=== PATIENT | female | born 1975 | race Caucasian/White ===

== ENCOUNTER 2018-12-01 09:57 | Inpatient (IN) | payer MEDICARE, OTHER ==
[~2018-12-01 09:57] MED LIST: BUPIV. HCL 0.25% (2.5MG/ML)/EPI. (1:200,000) PF 10 ML VIAL IM ONE; DEXAMETHASONE SODIUM PHOSPHATE 10 MG/ML VIAL ONE; FAMOTIDINE 20 MG/2 ML VIAL IV ONE; LACTATED RINGERS 1,000 ML IV.SOLN IV ONE; LIDOCAINE HCL 1% PF 300MG/30ML VIAL ONE; LIDOCAINE HCL 2% PF 100MG/5ML VIAL IJ ONE; MIDAZOLAM HCL 2 MG/2 ML VIAL ONE; ONDANSETRON HCL/PF 4 MG/ 2ML VIAL ONE; PHENYLEPHRINE HCL 10 MG/1 ML ONE; PROPOFOL 200 MG/20 ML VIAL IV ONE; ROCURONIUM BROMIDE 10 MG/ML 5ML VIAL ONE; SCOPOLAMINE HYDROBROMIDE 1.5MG/72HR PATCH TD ONE; SODIUM CHLORIDE IRRIG SOLUTION 3,000 ML IRRIG.SOLN IR ONE; SUGAMMADEX SODIUM 500 MG/5 ML VIAL IV ONE; VASOPRESSIN 20 UNIT/1 ML ONE; ceFAZolin SODIUM 1 GM VIAL ONE; ePHEDrine SULFATE 50 MG/1 ML IVP ONE
[2018-12-01] MEDS ORDERED: 0.9 % SODIUM CHLORIDE 1,000 ML IV ONE (16:00)
[2018-12-01] MEDS ORDERED: ONDANSETRON HCL/PF 4 MG/ 2ML VIAL IVP PRN (16:48)
[2018-12-01] MEDS ORDERED: ACETAMINOPHEN 1,000 MG/100 ML INJ IV PRN (16:48)
[2018-12-01] MEDS ORDERED: MORPHINE SULFATE 2 MG/ML VIAL IV PRN (16:48)
[2018-12-01] MEDS ORDERED: PROMETHAZINE HCL 25 MG in 0.9 % SODIUM CHLORIDE 50 ML IV PRN (16:48)
[2018-12-01] MEDS ORDERED: INSULIN REGULAR, HUMAN 100 UNIT/ML 10ML VIAL ONE (17:14)
[2018-12-01] MEDS ORDERED: IPRATROPIUM/ALBUTEROL SULFATE 3 ML AMPUL.NEB NEB PRN (20:57)
[2018-12-01] MEDS ORDERED: INSULIN REGULAR, HUMAN 100 UNIT/ML 10ML VIAL IV ONE (21:00)
[2018-12-01] MEDS: 0.9 % SODIUM CHLORIDE 1,000 ML IV SCH (23:20)
[2018-12-01] MEDS: FAMOTIDINE 20 MG/2 ML VIAL IV SCH (23:22)
[2018-12-01] MEDS: ceFAZolin SODIUM 1 GM in 0.9 % SODIUM CHLORIDE 50 ML IV SCH (23:48)
[2018-12-02] MEDS: HYDROcodone-ACETAMIN 7.5-325/15ML SOLN UD CUP PO PRN ×5 (02:21→21:59)
[2018-12-02] MEDS: 0.9 % SODIUM CHLORIDE 1,000 ML IV SCH ×3 (03:29→22:08)
[2018-12-02] MEDS: ceFAZolin SODIUM 1 GM in 0.9 % SODIUM CHLORIDE 50 ML IV SCH (04:44)
[2018-12-02] MEDS ORDERED: CYCLOBENZAPRINE HCL 5 MG TABLET PO PRN (07:29)
[2018-12-02 07:36] LABS: eGFR (Non-African) > 60
[2018-12-02 07:37] LABS: BASOPHILS % 0.5 % (0.0-1.5); NEUTROPHILS # 13.2 # k/uL (1.4-7.7)
--- NOTE | 2018-12-02 07:46 | Inpatient Progress Note ---
Subjective - Required Recertification Statement I anticipate X number of days because-include discharge plan: 1 - Review of Systems Events since last encounter: Patient is lying in bed this morning awake. She states that she did not get much sleep. She was having a lot of discomfort last night. She states that pain is improving. She has had some nausea and moderate discomfort from the gas. She denies any chest pain or shortness of breath. She has been up ambulating in the halls and using incentive spirometer while awake. She is concerned about her blood pressure being slightly elevated and she is requesting her Flexeril and Lyrica for her back pain. General: Denies: Chills, Night Sweats HEENT: Denies: Dysphasia Pulmonary: Dyspnea (with exertion d/t weight) Cardiovascular: Denies: Chest Pain, Light Headedness Gastrointestinal: Nausea, Abdominal Pain. Denies: Vomiting Genitourinary: Denies: Dysuria Musculoskeletal: Back Pain (chronic back pain) Neurological: Weakness Objective - Exam Vitals and I&O: Vital Signs Temp 97.2 F L 12/02/18 05:47 Pulse 112 H 12/02/18 05:47 Resp 20 12/02/18 05:47 BP 152/80 12/02/18 05:47 Pulse Ox 96 12/02/18 05:47 Intake & Output 12/01/18 12/01/18 12/02/18 11:59 23:59 11:59 Output Total 800 2100 Balance -800 -2100 Output: Urine 800 2100 Other: # Voids 4 General: Alert, Oriented to Person, Oriented to Place, Oriented to Time, Cooperative, Moderate distress, Morbidly Obese HEENT: Atraumatic, PERRLA, Mouth Mucous membr. moist/[place], Nose Mucous membr. moist/[place] Neck: No JVD, +2 carotid pulse wo bruit Lungs: Clear to auscultation, Normal air movement, Accessory Muscle Use Cardiovascular: Normal S1, Normal S2, Tachycardia Abdomen: Soft, Decreased Bowel Sounds (pt is belching) Extremities: No edema, Normal pulses, No tenderness/swelling Skin: Warm, Dry, Pale, Other (Incisions x 5 without redness/erythema; skin adhesive intact) Neurological: Normal gait, Normal speech, Strength Equal Bilat, Generalized Weakness - Results Results: Laboratory Results WBC 15.40 K/ul (4.00-12.00) H 12/02/18 05:00 RBC 4.64 M/ul (3.90-5.20) 12/02/18 05:00 Hgb 14.0 g/dL (11.5-16.0) 12/02/18 05:00 Hct 40.9 % (34.5-46.5) 12/02/18 05:00 MCV 88.0 fl (80.0-100.0) 12/02/18 05:00 MCH 30.1 pg (28.0-34.0) 12/02/18 05:00 MCHC 34.2 g/dL (30.0-36.0) 12/02/18 05:00 RDW 14.2 % (11.3-14.3) 12/02/18 05:00 Plt Count 345 K/mm3 (130-400) 12/02/18 05:00 Neut % (Auto) 85.9 % (39.0-79.0) H 12/02/18 05:00 Lymph % (Auto) 7.1 % (16.0-50.0) L 12/02/18 05:00 [place] % (Auto) 5.4 % (0.0-11.0) 12/02/18 05:00 Eos % (Auto) 1.1 % (0.0-6.8) 12/02/18 05:00 Baso % (Auto) 0.5 % (0.0-1.5) 12/02/18 05:00 Neut # (Auto) 13.2 # k/uL (1.4-7.7) H 12/02/18 05:00 Lymph # (Auto) 1.1 # k/uL (0.6-4.0) 12/02/18 05:00 [place] # (Auto) 0.8 # k/uL (0.0-0.9) 12/02/18 05:00 Eos # (Auto) 0.2 # k/uL (0.0-0.6) 12/02/18 05:00 Baso # (Auto) 0.1 # k/uL (0.0-0.5) 12/02/18 05:00 Sodium 137 mmol/L (137-145) 12/02/18 05:00 Potassium 3.9 mmol/L (3.5-5.1) 12/02/18 05:00 Chloride 96 mmol/L (98-107) L 12/02/18 05:00 Carbon Dioxide 26 mmol/L (22-30) 12/02/18 05:00 Anion Gap 18.9 12/02/18 05:00 BUN 15 mg/dL (7-17) 12/02/18 05:00 Creatinine 0.70 mg/dL (0.52-1.04) 12/02/18 05:00 Est GFR ( Amer) > 60 (60-) 12/02/18 05:00 Est GFR (Non-Af Amer) > 60 (60-) 12/02/18 05:00 Glucose 217 mg/dL (74-106) H 12/02/18 05:00 Calcium 9.6 mg/dL (8.4-10.2) 12/02/18 05:00 Total Bilirubin 0.7 mg/dL (0.2-1.3) 12/02/18 05:00 AST 64 U/L (15-46) H 12/02/18 05:00 ALT 75 U/L (13-69) H 12/02/18 05:00 Alkaline Phosphatase 78 U/L (38-126) 12/02/18 05:00 Total Protein 7.5 g/dL (6.3-8.2) 12/02/18 05:00 Albumin 4.4 g/dL (3.5-5.0) 12/02/18 05:00 Assessment/Plan - Assessment/Plan (1) Chronic back pain Status: Acute Current Visit: Yes Qualifiers: Back pain location: low back pain Back pain laterality: bilateral Sciatica presence: with sciatica Sciatica laterality: bilateral sciatica Qualified Code(s): M54.42 - Lumbago with sciatica, left side; M54.41 - Lumbago with sciatica, right side; G89.29 - Other chronic pain Assessment: Patient c/o low back pain- she states that it is the same as usual- Smilax is helping but she is requesting Lyrica and Flexeril (Takes at home) Plan: Will add her lyrica and flexeril today; will see how she how she tolerates (2) Asthma Status: Acute Current Visit: Yes Qualifiers: Asthma severity: mild Assessment: Patient has SOA with exertion d/t obesity; LCTA; No SOA at rest. Plan: Duonebs ordered as needed; will continue to monitor; will check pulse ox (3) Hypertension Status: Acute Current Visit: Yes Qualifiers: Hypertension type: essential hypertension Qualified Code(s): I10 - Essential (primary) hypertension Assessment: Blood pressures are slightly elevated; denies any chest pain Plan: Will restart Amlodipine and Lisinopril; will continue to check VS (4) Morbid obesity due to excess calories Status: Acute Current Visit: Yes Assessment: Patient tolerating ice chips and water; some nausea Plan: Will advance diet to clear liquids today (5) Nausea & vomiting Status: Acute Current Visit: Yes Assessment: Patient still experiencing some nause- no vomiting Plan: Will continue with IV Zofran and phenergan; IV pepcid BID (6) S/P gastric surgery Status: Acute Current Visit: Yes Assessment: Patient experiencing nausea; has been ambulating, wearing SCDs while in bed, using incentive spirometry, patient receiving lovenox to prevent DVT Plan: Patient getting IV fluids for hydration, IV pain meds, and IV antiemetics. Lovenox and SCDs to help prevent DVTs, IS and frequent ambulation will be implemented. Patient eating ice chips and will advance diet to clear liquids as tolerated once nausea and vomiting is controlled. Will continue with Pepcid IV BID for GI upset (7) Type 2 diabetes mellitus Status: Acute Current Visit: Yes Qualifiers: Diabetes mellitus longterm insulin use: with terminal makeup operator use Diabetes mellitus complication status: with hyperglycemia Qualified Code(s): E11.65 - Type 2 diabetes mellitus with hyperglycemia; Z79.4 - [facility] (current) use of insulin Assessment: Blood sugars running around 140s; no sx's of hypo/hyperglycemia Plan: Will continue SSI as needed;
--- NOTE | 2018-12-02 09:19 | History and Physical Report ---
History of Present Illnes - History of Present Illness Reason for Visit: S/P LSG History of Present Illness: Patient is a 43-year-old female who has tried multiple diets and exercise programs with no success. She has always struggled with her weight which has worsened since having children. Patient and surgeon decided to proceed with gastric sleeve procedure. Procedure went well- She will be admitted and monitored s/p surgical intervention. Patient has been on a liquid diet prior to surgery so she is a risk of dehydration s/p surgery. She will be admitted for IV hydration to help hydrate patient until she is able to tolerate a sufficient oral intake, will treat pain with IV medication until patient is able to tolerate oral meds, IV antiemetics to help reduce episodes of nausea and/or vomiting. Patient will be monitored closely using telemetry s/p surgery d/t HTN. Will encourage incentive spirometer for asthma and will place patient on SSI due to elevated blood sugars from DM. Patient appears very uncomfortable s/p surgery. - Past Medical History Cardiac: HTN, Hyperlipidemia Pulmonary: Asthma COLLECTION AGENT: Peripheral neuropathy, Other ([place] Palsy) Gastrointestinal: GERD Musculoskeletal: Chronic low back pain Renal/: UTI Endocrine: Diabetes, obesity Grav: 6 Para: 5 Ab: 1 - Past Surgical History Past Surgical History: Tubal Ligation, Other (Back) - Past Family History Mother Family History: Cancer (Breast) Father Family History: DM - Past Social History Smoke: No, Quit Occupation: Disabled Alcohol: None Drugs: None Lives: With Family Domestic Violence: Negative - Health Maintenance Health Maintenance: Cholesterol, Pap Smear, Mammogram Influenza Vaccine: No Pneumonia Vaccine: No Resuscitation Status: Resusciation Status Resuscitation Status Full Code Review of Systems - Review of Systems Constitutional: negative: Fever, Chills Eyes: negative: pain, vision change ENT: negative: Ear Pain, Nose Pain, Throat Pain Respiratory: SOB with Excertion Cardiovascular: negative: Chest Pain, Edema Gastrointestinal: Nausea, Abdominal Pain (s/p LSG) Genitourinary: negative: Dysuria Musculoskeletal: Back Pain, Leg Pain Skin: negative: Rash Neurological: Weakness - Medications/Allergies Allergies/Adverse Reactions: Allergies Allergy/AdvReac Type Severity Reaction Status Date / Time clavulanic acid Allergy Verified 12/01/18 23:37 [From Augmentin] erythromycin base Allergy Verified 12/01/18 23:36 Home Medications: Home Medications Albuterol Sulfate [Proair HFA] 1 inh IH TID 12/01/18 Atorvastatin Calcium 20 mg PO HS 12/01/18 Canagliflozin [Invokana] 1 tab PO AC15 12/01/18 Cetirizine HCl [Zyrtec] 10 mg PO DAILY 12/01/18 Dulaglutide [Trulicity] 1 EP WEEK 12/01/18 Hydrocodone/Acetaminophen [Hydrocodone-Acetamin 5-325 mg] 1 tab PO TID PRN 12/01/18 Insulin Glargine,Hum.rec.anlog [Lantus Solostar] 10 units SQ HS 12/01/18 Lisinopril/Hydrochlorothiazide [Zestoretic] 1 each PO DAILY 12/01/18 Metformin HCl 500 mg PO BID 12/01/18 Omeprazole 20 mg PO DAILY 12/01/18 Pregabalin [Lyrica] 50 mg PO TID 12/01/18 amLODIPine BESYLATE [Norvasc] 5 mg PO 0900 12/01/18 Current Inpatient Medications: Current Inpatient Medications Acetaminophen (Ofirmev) 1,000 mg IV Q6H PRN PRN Reason: Mild Pain (Score 1-4) Stop: 12/02/18 23:59 Hydrocodone Bitart/Acetaminophen (Hycet 7.5-325mg/15 Ml Ud Cup) 15 ml PO Q4H PRN PRN Reason: Moderate Pain (Score 5-7) Stop: 12/05/18 16:47 Last Admin: 12/02/18 06:40 Dose: 15 ml Albuterol/Ipratropium (Duoneb) 3 ml NEB Q4 PRN PRN Reason: Wheezing Stop: 12/31/18 20:56 Amlodipine Besylate (Norvasc) 5 mg PO 0900 [facility] Stop: 01/01/19 08:59 Cyclobenzaprine HCl (Flexeril) 5 mg PO TID PRN PRN Reason: muscle spasms Stop: 01/01/19 08:59 Enoxaparin Sodium (Lovenox) 40 mg SQ DAILY [facility] Stop: 12/16/18 10:59 Famotidine (Pepcid) 20 mg IV BID [facility] Stop: 12/31/18 20:59 Last Admin: 12/01/18 23:22 Dose: 20 mg Sodium Chloride (Normal Saline) 1,000 mls @ 150 mls/hr IV Q8H [facility] Last Admin: 12/02/18 05:02 Dose: 150 mls/hr Promethazine HCl 25 mg/ Sodium (Chloride) 51 mls @ 204 mls/hr IV Q6H PRN PRN Reason: Nausea / Vomiting Stop: 12/02/18 23:59 Ketorolac Tromethamine (Toradol) 30 mg IV Q6H PRN PRN Reason: Pain Stop: 12/07/18 10:59 Miscellaneous (Chem Sticks) 1 each MC CHEMQID [facility] Stop: 12/31/18 16:59 Last Admin: 12/02/18 06:46 Dose: 1 each Miscellaneous (Lisinopril/Hydrochlorothiazide [Zestoretic]) 1 each PO DAILY [facility] Stop: 01/01/19 08:59 Ondansetron HCl (Zofran) 4 mg IVP Q6H PRN PRN Reason: Nausea / Vomiting Stop: 12/02/18 23:59 Pregabalin (Lyrica) 50 mg PO TID [facility] Stop: 01/01/19 08:59 Exam - Exam Vital Signs: Vital Signs (72 hours) 12/01/18 12/01/18 12/01/18 20:57 21:46 22:46 Temperature 98.2 F Pulse Rate 88 Pulse Rate [ 121 H 118 H Left] Respiratory 20 20 Rate Blood Pressure 137/71 [Left Arm] O2 Sat by Pulse 96 96 Oximetry 12/02/18 12/02/18 12/02/18 00:57 02:00 03:52 Temperature 98.4 F Pulse Rate 114 H Pulse Rate [ 122 H Left] Respiratory 22 Rate Blood Pressure 146/75 [Left Arm] O2 Sat by Pulse 98 96 Oximetry 12/02/18 12/02/18 12/02/18 04:00 05:36 05:38 Temperature Pulse Rate Pulse Rate [ 108 H Left] Respiratory 20 Rate Blood Pressure [Left Arm] O2 Sat by Pulse 96 98 Oximetry 12/02/18 12/02/18 05:47 09:07 Temperature 97.2 F L 96.4 F L Pulse Rate Pulse Rate [ 112 H 107 H Left] Respiratory 20 20 Rate Blood Pressure 152/80 144/88 [Left Arm] O2 Sat by Pulse 96 95 Oximetry General: Alert, Oriented to Person, Oriented to Place, Oriented to Time, Cooperative, Moderate distress (Very uncomfortable s/p surgery), Morbidly Obese HEENT: Atraumatic, PERRLA, Mouth Mucous membr. moist/[place], Nose Mucous membr. moist/[place] Neck: Normal Range of Motion Carotids: No bruit Lungs: Clear to auscultation, Normal air movement, Accessory Muscle Use Cardiovascular: Normal S1, Normal S2, Tachycardia Peripheral Edema: None Peripheral Pulses: 2+ Abdomen: Soft, Decreased Bowel Sounds Integumentary: Warm, Dry, Pale, Other (Incisions x 5 without redness/erythema- skin adhesive intact) Extremities: No edema, Normal pulses, No tenderness/swelling Neurological: Strength Equal Bilat, Sensation intact Psych/Mental Status: Mood NL, Appropriate Affect - Laboratory Results Laboratory Results: Laboratory Results 12/02/18 12/02/18 05:00 05:00 WBC 15.40 H RBC 4.64 Hgb 14.0 Hct 40.9 MCV 88.0 MCH 30.1 MCHC 34.2 RDW 14.2 Plt Count 345 Neut % (Auto) 85.9 H Lymph % (Auto) 7.1 L [place] % (Auto) 5.4 Eos % (Auto) 1.1 Baso % (Auto) 0.5 Neut # (Auto) 13.2 H Lymph # (Auto) 1.1 [place] # (Auto) 0.8 Eos # (Auto) 0.2 Baso # (Auto) 0.1 Sodium 137 Potassium 3.9 Chloride 96 L Carbon Dioxide 26 Anion Gap 18.9 BUN 15 Creatinine 0.70 Est GFR ( Amer) > 60 Est GFR (Non-Af Amer) > 60 Glucose 217 H Calcium 9.6 Total Bilirubin 0.7 AST 64 H ALT 75 H Alkaline Phosphatase 78 Total Protein 7.5 Albumin 4.4 Assessment/Plan - Assessment/Plan (1) S/P gastric surgery Status: Acute Current Visit: Yes Plan: Plan to admit for IV hydration, IV pain meds, and IV antiemetics. Lovenox and SCDs to help prevent DVTs, IS and frequent ambulation will be implemented. Start ice chips and advance diet as tolerated. (2) Morbid obesity due to excess calories Status: Acute Current Visit: Yes Plan: Patient is s/p gastric sleeve. We will assist patient with implementing gastric sleeve diet protocol starting with ice chips and clear liquids and advancing as tolerated. (3) Nausea & vomiting Status: Acute Current Visit: Yes Plan: Pepcid IV BID ordered; IV antiemetics, and IVFs (4) Asthma Status: Acute Current Visit: Yes Plan: Will monitor resp. status and check pulse ox; duonebs ordered as needed (5) Hypertension Status: Acute Current Visit: Yes Qualifiers: Hypertension type: essential hypertension Qualified Code(s): I10 - Essential (primary) hypertension Plan: Will hold medication until able to tolerate PO- will monitor blood pressures closely (6) Type 2 diabetes mellitus Status: Acute Current Visit: Yes Qualifiers: Diabetes mellitus termite control technician insulin use: with usp use Diabetes mellitus complication status: with hyperglycemia Qualified Code(s): E11.65 - Type 2 diabetes mellitus with hyperglycemia; Z79.4 - termite control technician (current) use of insulin Plan: Will check blood sugars AC & HS; will implement sliding scale VTE Assessment - RISK FACTOR SCORE VTE RISK FACTOR SCORES: AGE 40-60 YEARS, OBESITY, MAJOR SURGERY/ANESTHESIA TIME > 1 HOUR - RISK VTE HIGH RISK: SCORE OF 3-4 (RISK PROXIMAL DVT 4-8%) PROPHYLAXIS NEEDED (Lovenox daily, SCDs while in bed, frequent ambulation, incentive spirometer)
[2018-12-02] MEDS: FAMOTIDINE 20 MG/2 ML VIAL IV SCH ×2 (09:28→21:23)
[2018-12-02] MEDS: PREGABALIN 50 MG CAPSULE PO SCH ×3 (09:29→17:42)
[2018-12-02] MEDS: amLODIPine BESYLATE 5 MG TABLET PO SCH (09:29)
[2018-12-02] MEDS: ENOXAPARIN SODIUM 40 MG/0.4 ML DISP.SYRIN SQ SCH (09:30)
[2018-12-02] MEDS: LISINOPRIL 10 MG TABLET PO SCH (09:57)
[2018-12-02] MEDS: hydroCHLOROthiazide 25 MG TABLET PO SCH (09:57)
[2018-12-02] MEDS ORDERED: KETOROLAC TROMETHAMINE 30 MG/1ML VIAL IV PRN (11:00)
[2018-12-03] MEDS ORDERED: PROMETHAZINE HCL 25 MG in 0.9 % SODIUM CHLORIDE 50 ML IV PRN (00:16)
[2018-12-03] MEDS ORDERED: ONDANSETRON HCL/PF 4 MG/ 2ML VIAL IVP PRN (00:16)
[2018-12-03] MEDS ORDERED: ACETAMINOPHEN 1,000 MG/100 ML INJ IV PRN (05:28)
[2018-12-03] MEDS ORDERED: ACETAMINOPHEN 1,000 MG/100 ML INJ IV ONE (05:29)
--- NOTE | 2018-12-03 07:03 | Discharge Summary ---
Discharge Summary - Discharge [facility] Admission Date: 12/01/18 Discharge Date: 12/03/18 Discharge To: Home History of Present Illness: Patient is a 43-year-old female who has tried multiple diets and exercise programs with no success. She has always struggled with her weight which has worsened since having children. Patient and surgeon decided to proceed with gastric sleeve procedure. Procedure went well- She will be admitted and monitored s/p surgical intervention. Patient has been on a liquid diet prior to surgery so she is a risk of dehydration s/p surgery. She will be admitted for IV hydration to help hydrate patient until she is able to tolerate a sufficient oral intake, will treat pain with IV medication until patient is able to tolerate oral meds, IV antiemetics to help reduce episodes of nausea and/or vomiting. Patient will be monitored closely using telemetry s/p surgery d/t HTN. Will encourage incentive spirometer for asthma and will place patient on SSI due to elevated blood sugars from DM. Patient appears very uncomfortable s/p surgery. Condition at Discharge: Stable Home Medications: Ambulatory Orders Medication Instructions Recorded Albuterol Sulfate [Proair HFA] 1 inh IH TID 12/01/18 Atorvastatin Calcium 20 mg PO HS 12/01/18 Canagliflozin [Invokana] 1 tab PO AC15 12/01/18 Cetirizine HCl [Zyrtec] 10 mg PO DAILY 12/01/18 Dulaglutide [Trulicity] 1 EP WEEK 12/01/18 Hydrocodone/Acetaminophen 1 tab PO TID PRN 12/01/18 [Hydrocodone-Acetamin 5-325 mg] Insulin Glargine,Hum.rec.anlog 10 units SQ HS 12/01/18 [Lantus Solostar] Lisinopril/Hydrochlorothiazide 1 each PO DAILY 12/01/18 [Zestoretic] Metformin HCl 500 mg PO BID 12/01/18 Omeprazole 20 mg PO DAILY 12/01/18 Pregabalin [Lyrica] 50 mg PO TID 12/01/18 amLODIPine BESYLATE [Norvasc] 5 mg PO 0900 12/01/18 Consultations this Visit: None Procedures this Visit: None Allergies/Adverse Reactions: Allergies Allergy/AdvReac Type Severity Reaction Status Date / Time clavulanic acid Allergy Verified 12/01/18 23:37 [From Augmentin] erythromycin base Allergy Verified 12/01/18 23:36 Patient Problems: Current Active Problems Problem Status Onset Asthma Acute Chronic back pain Acute Hypertension Acute Morbid obesity due to excess calories Acute Nausea & vomiting Acute S/P gastric surgery Acute Type 2 diabetes mellitus Acute Discharge Summary: Patient is a 43-year-old female that underwent the gastric sleeve procedure. She had some issues with nausea and dry heaves but has done well. She has been very cooperative with her care by ambulating frequently, using her incentive spirometer, and wearing her SCDs while in bed. She has been compliant with her diet during hospitalization. She is having minimal discomfort at this time and minimal nausea- she has is passing gas and belching. She is aware of discharge instructions and what she can and cannot do post surgical- she is aware of the strict diet she must follow to decrease discomfort and have success after procedure. She has family support and family will be taking her home- medications written by surgeon given to patient. She feels ready to go home. Hospital Course: Patient received IV pain medications, antiemetics, and IVF and was transitioned to oral. She has been up ambulating and using incentive spirometer. - Final Diagnosis (1) Chronic back pain Problems: Stable- continue on home meds Right or Left: Right (2) Asthma Problems: Stable continue on home meds Right or Left: Right (3) Hypertension Problems: Stable- continue on home meds Right or Left: Right (4) Morbid obesity due to excess calories Problems: Incision without redness or drainage, positive bowel sounds, minimal discomfort, belching and flatus, no extremity pain or edema, LCTA Right or Left: Right (5) Nausea & vomiting Problems: Stable- script sent with patient for phenergan Right or Left: Right (6) S/P gastric surgery Problems: Continue with bariatric sleeve diet- clear liquids today and start full liquids tomorrow; protein shake 80-100 grams protein Right or Left: Right (7) Type 2 diabetes mellitus Problems: Check blood sugar daily-keep log and take to follow up appointment Right or Left: Right
[2018-12-03 08:48] VITALS: BP 116/63
[2018-12-03] MEDS: hydroCHLOROthiazide 25 MG TABLET PO SCH (09:12)
[2018-12-03] MEDS: ENOXAPARIN SODIUM 40 MG/0.4 ML DISP.SYRIN SQ SCH (09:12)
[2018-12-03] MEDS: amLODIPine BESYLATE 5 MG TABLET PO SCH (09:13)
[2018-12-03] MEDS: FAMOTIDINE 20 MG/2 ML VIAL IV SCH (09:13)
[2018-12-03] MEDS: LISINOPRIL 10 MG TABLET PO SCH (09:13)
[2018-12-03] MEDS: PREGABALIN 50 MG CAPSULE PO SCH (09:25)
[2018-12-03] MEDS: HYDROcodone-ACETAMIN 7.5-325/15ML SOLN UD CUP PO PRN (09:25)
[2018-12-03] MEDS: 0.9 % SODIUM CHLORIDE 1,000 ML IV SCH ×2 (09:30→12:03)
--- NOTE | 2018-12-05 15:06 | Operative Note ---
PREOPERATIVE DIAGNOSIS: 1. Morbid obesity. 2. Type 2 diabetes. 3. Obstructive sleep apnea. 4. Hypertension. POSTOPERATIVE DIAGNOSIS: 1. Morbid obesity. 2. Type 2 diabetes. 3. Obstructive sleep apnea. 4. Hypertension. PROCEDURES PERFORMED: 1. Laparoscopic vertical sleeve gastrectomy. 2. Upper gastrointestinal endoscopy. SURGEON: Meliton Soto M.D. INDICATIONS FOR PROCEDURE: Ms. Dinero is a 43-year-old female who presented with features of morbid obesity. She was noted to have a weight of 413 pounds with a BMI of 66 with the above-listed comorbidities. The patient was advised laparoscopic vertical sleeve gastrectomy and possible hiatal hernia repair. The patient showed understanding and agreed to proceed. DESCRIPTION OF PROCEDURE: After explaining to the patient in detail and informed consent was obtained, the patient was identified in the preoperative holding area. The patient was transferred to the operating room and was placed in supine position. Sequential compressive devices were placed for DVT prophylaxis. Preoperative antibiotics were given. After induction of anesthesia, the abdomen was prepped and draped in a sterile fashion. Through a left upper quadrant 1-cm incision, and using Optiview technique, the peritoneal cavity was entered and pneumoperitoneum was created. Thereafter, under direct vision, another 5-mm trocar was placed in the left midabdomen and another 15-mm trocar was placed in the right midabdomen. Through a 1-cm incision in the right subcostal region, another 5-mm trocar was placed. Through a 1-cm incision in the epigastrium, a Gen retractor was introduced and the left lobe of the liver was retracted. On initial inspection, the patient was noted to have no evidence of hiatal hernia. I took down the gastroepiploic vessels using a LigaSure. This was continued superiorly. The short gastric vessels were taken down. The gastrophrenic ligament was divided and the Angle of His was mobilized. The posterior attachments of the stomach on the pancreas were released. Distally, the gastroepiploic vessels were taken down up to about 4 cm proximal to the pylorus. At this point, a #38 [place] Hurst Bougie was introduced into the stomach and was placed along the lesser curve. The stomach was then divided in a vertical fashion with multiple Endo FESTUS [employer] Black Load Staplers. The first firing was directed outwards towards the greater curvature. Subsequent firings were directed towards the Angle of His to create a loose sleeve around the #38 [place] bougie. The bougie was then removed and an upper GI endoscopy was performed at this point. The scope was introduced into the esophagus and was gradually advanced into the stomach. The GE junction appeared normal. The sleeve size appeared normal. No evidence of any active bleeding was noted. The stomach was insufflated with air and irrigation of fluid along the staple line revealed no evidence of air leak. The stomach was then suctioned out and the scope was removed. Absolute hemostasis was ensured. Thorough saline irrigation was given. The Gen retractor was removed. Approximately 10 mL of a lidocaine- Marcaine mix was instilled under the left hemidiaphragm. The sleeve gastrectomy specimen was removed. The abdomen was then deflated. The incisions were closed with 4-0 Monocryl. Dermabond was applied. Approximately 10 mL of a lidocaine- Marcaine mix was injected into all the incisions. The patient was awakened from anesthesia and was transferred to the recovery room in stable condition. The patient had some bleeding from the short gastric branches while taking down the stomach from the splenic area and approximately 100 mL of blood was lost trying to get good control of this. Surgiflo and Surgicel was placed in this area. ESTIMATED BLOOD LOSS: Approximately 100 mL. CONDITION OF THE PATIENT: Stable. FLUIDS GIVEN: Per Anesthesia note. SPECIMEN(S) SENT: Sleeve gastrectomy specimen. COMPLICATIONS: None. ANESTHESIA: General. Meliton Soto M.D. IQANA/tatyana (Please copy [facility] provider when applicable) Job #[id number] LINDA
== END 2018-12-03 11:50 | disposition home or self-care (01) | DRG 621 ==
LOC: OPSURG 09:57 → SOUTH 15:15
PROVIDERS: ADMIT Nurse Practitioner Family; ATTEND Nurse Practitioner Family
PROC: 0DB64Z3 Excision of Stomach, Percutaneous Endoscopic Approach, Vertical (ICD-10-PCS; principal; 2018-12-01)
DX: E66.01 Morbid (severe) obesity due to excess calories (principal); I10 Essential (primary) hypertension; J45.909 Unspecified asthma, uncomplicated; E11.65 Type 2 diabetes mellitus with hyperglycemia; E78.5 Hyperlipidemia, unspecified; E11.42 Type 2 diabetes mellitus with diabetic polyneuropathy; M54.42 Lumbago with sciatica, left side; M54.41 Lumbago with sciatica, right side; G47.33 Obstructive sleep apnea (adult) (pediatric); K21.9 Gastro-esophageal reflux disease without esophagitis; G89.29 Other chronic pain; Z87.440 Personal history of urinary (tract) infections; Z98.51 Tubal ligation status; Z83.3 Family history of diabetes mellitus; Z80.3 Family history of malignant neoplasm of breast; Z87.891 Personal history of nicotine dependence; Z88.1 Allergy status to other antibiotic agents; Z79.899 Other long term (current) drug therapy; Z79.84 Long term (current) use of oral hypoglycemic drugs; Z68.44 Body mass index [BMI] 60.0-69.9, adult
CPT/HCPCS: 43235; 43775; 80053; 85025; 99024; 99238; J0690; J1650; J2001; J2250; J2270; J2370; J2405; J2550; J2704; J3490; A9270-GY; J1815; J7030; J7120